=== PATIENT | female | born 1995 | race Caucasian/White ===

== ENCOUNTER 2021-11-11 18:30 | Inpatient (IN) | payer BC ==
[~2021-11-11] VITALS: Ht 172.7 cm; Wt 89.1 kg
[2021-11-14] VITALS (52 sets, daily range): BP systolic 104–158; BP diastolic 54–100; PULSE 63–100; TEMP 97.8–98.7
[2021-11-14 07:01] LABS: BASO % 0.4 % (0.0-2.0); EOS # 0.1 K/mm3 (0.0-0.7); EOS % 0.7 % (0.0-4.0); GRAN # 4.8 K/mm3 (1.4-6.5); GRAN % 59.8 % (42.2-75.2); HEMOGLOBIN 11.4 g/dl (12.5-16.0); LYMPH # 2.4 K/mm3 (1.2-3.4); LYMPH % 29.7 % (20.0-51.0); MEAN CELL VOLUME 90 fl (80.0-100.0); MEAN CORPUSCULAR HEMOGLOBIN 29 pg (27-31); MEAN CORPUSCULAR HGB CONC 32 g/dl (33.0-37.0); MEAN PLATELET VOLUME 11.8 fl (7.4-10.4); MONO # 0.7 K/mm3 (0.1-0.6); MONO % 8.7 % (1.7-9.3); PLATELET COUNT 200 K/mm3 (130-400); RED BLOOD COUNT 3.99 M/mm3 (4.10-5.30); REDCELL DISTRIBUTION WIDTH-CV 15.7 % (11.5-14.5)
[2021-11-14] MEDS ORDERED: PRENATAL TABLET PO (08:21)
[2021-11-14] MEDS ORDERED: NATURAL IRON65 MG (08:21)
--- NOTE | 2021-11-14 08:49 | NUR ---
PATIENT ARRIVED ON UNIT AT 0630. USED RESTROOM AND CHANGED GOWN. 0644 PATIENT PLACED ON MONITOR. VITALS TAKEN, STABLE. 0704 IV RIGHT HAND. 0708 SVE /-3 0722 PATIENT ASSISTED UP TO VOID 0727 LR AND PITOCION STARTED AT 2 MU/MIN. ADMISSION ASSESSMENT COMPLETED. CONSENTS DISCUSSED AND SIGNED. CALL JONES IN AND BELLONGINGS IN REACH.
--- NOTE | 2021-11-14 14:27 | NUR ---
PATIENT STATED SHE IS FEELING MORE UNCOMFORTABLE AND WOULD LIKE EPIDURAL. BOLUS STARTED AND CURING ROOM SUPERVISOR CALLED. 1358 PATIENT SAT UP ON SIDE OF BED FOR EPIDURAL. 1359 ANESTHESIA AT THE BEDSIDE. 1401 TIMEOUT AND PROCEDURE STARTED. 1405 SINGLE SHOT GIVEN BY CURING ROOM SUPERVISOR. PATIENT TOLERATED WELL. VITALS Q 5 MINS STATRTED. 1410 PATIENT LAID BACK FROM EPIDURAL. MONITORS ADJUSTED. NO NEEDS OR ISSUES AT THIS TIME. CALL JONES AND BELONGINGS IN REACH
--- NOTE | 2021-11-14 22:10 | NUR ---
pt's left leg is still numb and heavy. pt was straight cathed for 50 cc concentrated urine. pt not able to amb to br at this time. instructed pt to call for assist to go to the bathroom the first time. pt verbalized understanding. pt was transfered to a wheelchair and moved to room 207. pt was assisted to the bed and given room orientation and call light instructions.
[2021-11-15 06:30] LABS: HEMATOCRIT 29.1 % (37.0-47.0); HEMOGLOBIN 9.2 g/dl (12.5-16.0)
[2021-11-15 07:39] VITALS: BP 122/62; PULSE 87; TEMP 98
[2021-11-15] MEDS ORDERED: IBU600 MG PO (09:16)
--- NOTE | 2021-11-15 09:35 | NUR ---
Initial visit; Parents thanked [employer] for offering congratulations and God's blessings for the of their daughter. [employer] thanked family for choosing [facility].
[2021-11-15 12:19] VITALS: BP 118/77; PULSE 86; TEMP 97.9
[2021-11-15 16:41] VITALS: BP 125/78; PULSE 80; TEMP 97.9
[2021-11-15 19:00] VITALS: BP 119/69; PULSE 81; TEMP 98
[2021-11-16 08:40] VITALS: BP 121/76; PULSE 77; TEMP 98
== END 2021-11-16 12:30 | disposition home or self-care (01) | DRG 807 ==
LOC: OB 11-14 06:28 → LDR 11-14 06:28 → OB 11-14 22:15
PROVIDERS: ADMIT Obstetrics & Gynecology
PROC: 10E0XZZ Delivery of Products of Conception, External Approach (ICD-10-PCS; principal; 2021-11-14)
PROC: 0KQM0ZZ Repair Perineum Muscle, Open Approach (ICD-10-PCS; 2021-11-14)
PROC: 3E033VJ Introduction of Other Hormone into Peripheral Vein, Percutaneous Approach (ICD-10-PCS; 2021-11-14)
DX: O48.0 Post-term pregnancy (principal); Z37.0 Single live birth; Z3A.41 41 weeks gestation of pregnancy; O99.344 Other mental disorders complicating childbirth; F41.9 Anxiety disorder, unspecified; O13.4 Gestational [pregnancy-induced] hypertension without significant proteinuria, complicating childbirth; O22.03 Varicose veins of lower extremity in pregnancy, third trimester; I83.899 Varicose veins of unspecified lower extremity with other complications; O99.02 Anemia complicating childbirth; O99.214 Obesity complicating childbirth; O70.1 Second degree perineal laceration during delivery; D64.9 Anemia, unspecified; Z86.16 Personal history of COVID-19; Z87.440 Personal history of urinary (tract) infections; Z88.0 Allergy status to penicillin
CPT/HCPCS: J2405; J2590; J2795; J7120